=== PATIENT | female | born 1985 | race African-American/Black ===

== ENCOUNTER 2018-11-10 10:20 | Inpatient (IN) ==
[2018-11-10] MEDS ORDERED: ONDANSETRON 4 MG/2 ML VIAL IV PRN (11:02)
[2018-11-10] MEDS ORDERED: LACTATED RINGERS 250 ML IV ONE (11:02)
[2018-11-10] MEDS ORDERED: LACTATED RINGERS 500 ML IV PRN (11:02)
[2018-11-10] MEDS ORDERED: FAMOTIDINE 20 MG TABLET PO ONE (11:08)
[2018-11-10] MEDS ORDERED: diphenhydrAMINE 50 MG/1 ML VIAL IV PRN ×2 (11:08)
[2018-11-10] MEDS ORDERED: NALOXONE 0.4 MG/ML VIAL IV PRN (11:08)
[2018-11-10] MEDS ORDERED: ONDANSETRON 4 MG/2 ML VIAL IV ONE (11:08)
[2018-11-10] MEDS ORDERED: ePHEDrine 50 MG/ML AMP IV PRN (11:08)
[2018-11-10] MEDS ORDERED: CITRIC ACID/SODIUM CITRATE 30 ML UDCUP PO ONE (11:08)
[2018-11-10] MEDS ORDERED: PROMETHAZINE 25 MG/1 ML VIAL IM ONE (11:08)
[2018-11-10] MEDS ORDERED: hydrOXYzine HCL 25 MG/1 ML VIAL IM PRN (11:08)
[2018-11-10] MEDS ORDERED: fentaNYL 2 MCG/ROPIV 0.2% EPID 100 ML EPIDURAL SCH (11:30)
[2018-11-10] MEDS ORDERED: OXYTOCIN/LR 20 UNIT/1,000 ML BAG IV SCH (11:30)
[2018-11-10] MEDS: LACTATED RINGERS 1,000 ML IV SCH ×2 (11:31→15:12)
[2018-11-10] MEDS: CLINDAMYCIN INJ 900 MG in PREMIX 1 EACH IV SCH ×2 (11:31→19:06)
[2018-11-10 11:34] LABS: Basophils % 0.2 % (0.0-0.8); Eosinophils # 0.1 10*3/uL (0.0-0.87); Eosinophils % 0.8 % (0.00-10.9); Hematocrit 31.6 VOL% (35.7-47.0); Hemoglobin 10.2 GM/DL (12.0-16.0); Immature Granulocytes % 0.7 %; Immature Granulocytes Absolute 0.06 #; Lymphocytes # 1.3 10*3/uL (1.4-4.0); Lymphocytes % 15.6 % (21.3-54.2); Mean Corpuscular HGB Conc 32.3 GM/DL (32-36); Mean Corpuscular Volume 89.5 FL (87-102); Mean Platelet Volume 9.9 FL (9.6-12.0); Monocytes % 9.5 % (1.7-12.7); Neutrophils % 73.2 % (38.7-73.9); Platelet Count 322 T/CUMM (130-400); Red Blood Count 3.53 MC/CUMM (3.8-5.5); Red Cell Distribution Width 13.2 % (9.3-17.3); White Blood Count 8.3 T/CUMM (4-12)
[2018-11-10] MEDS ORDERED: BUTORPHANOL 2 MG/ML VIAL IV PRN (21:08)
[2018-11-10] MEDS ORDERED: CITRIC ACID/SODIUM CITRATE 30 ML UDCUP ONE (21:34)
[2018-11-10] MEDS ORDERED: FAMOTIDINE 20 MG/2 ML VIAL IV PRN (21:35)
[2018-11-11] MEDS ORDERED: miSOPROStol 200 MCG TABLET ONE (00:58)
[2018-11-11] MEDS ORDERED: LIDOCAINE 1% 50 ML VIAL ONE (00:58)
[2018-11-11] MEDS ORDERED: TRANEXAMIC ACID 1,000 MG/10 ML VIAL ONE (00:58)
[2018-11-11] MEDS ORDERED: CARBOPROST TROMETHAMINE 250 MCG/ML AMP IM ONE (00:59)
[2018-11-11] MEDS ORDERED: OXYTOCIN/LR 20 UNIT/1,000 ML BAG IV ONE (01:51)
[2018-11-11] MEDS ORDERED: LANOLIN 50% CREAM 0.3 OZ TUBE TOP PRN (01:51)
[2018-11-11] MEDS ORDERED: BISACODYL 10 MG SUPP RECTAL PRN (01:51)
[2018-11-11] MEDS ORDERED: WITCH HAZEL PADS 100/JAR TOP PRN (01:51)
[2018-11-11] MEDS ORDERED: MEASLES/MUMPS/RUBELLA VACCINE 0.5 ML VIAL SUBCUT ONE (01:51)
[2018-11-11] MEDS ORDERED: ACETAMINOPHEN 325 MG TABLET PO PRN (01:51)
[2018-11-11] MEDS ORDERED: RHO(D) IMMUNE GLOBULIN 300 MCG SYRINGE IM ONE (01:51)
[2018-11-11] MEDS ORDERED: oxyCODONE/ACETAMINOPHEN 5-325 MG TABLET PO PRN (01:51)
[2018-11-11] MEDS ORDERED: BENZOCAINE 20%/MENTHOL 0.5% SPRAY 56 GM CAN TOP PRN (01:51)
[2018-11-11] MEDS ORDERED: ONDANSETRON 4 MG/2 ML VIAL IV PRN (01:51)
[2018-11-11] MEDS ORDERED: HYDROCORTISONE 2.5% RECTAL CREAM 30 GM TUBE TOP PRN (01:51)
[2018-11-11] MEDS ORDERED: DIPH/TET/ACEL PERT BOOSTER VACCINE 0.5 ML VIAL IM ONE (01:51)
[2018-11-11] MEDS: IBUPROFEN 800 MG TABLET PO PRN ×2 (05:18→14:36)
[2018-11-11 06:32] LABS: Basophils % 0.3 % (0.0-0.8); Eosinophils % 0.1 % (0.00-10.9); Hematocrit 34.7 VOL% (35.7-47.0); Hemoglobin 11.2 GM/DL (12.0-16.0); Immature Granulocytes % 0.5 %; Immature Granulocytes Absolute 0.06 #; Lymphocytes % 8.8 % (21.3-54.2); Mean Corpuscular HGB Conc 32.3 GM/DL (32-36); Mean Platelet Volume 9.7 FL (9.6-12.0); Monocytes % 5.9 % (1.7-12.7); Neutrophils % 84.4 % (38.7-73.9); Platelet Count 314 T/CUMM (130-400); Red Cell Distribution Width 13.2 % (9.3-17.3); White Blood Count 11.3 T/CUMM (4-12)
[2018-11-11] MEDS: oxyCODONE/ACETAMINOPHEN 5-325 MG TABLET PO PRN ×2 (08:25→14:35)
[2018-11-11] MEDS: DOCUSATE SODIUM 100 MG CAPSULE PO SCH ×2 (08:25→21:57)
[2018-11-11] MEDS ORDERED: SUMAtriptan 6 MG/0.5 ML VIAL SUBCUT ONE (09:18)
[2018-11-11] MEDS ORDERED: BUTALBITAL/ACETAMIN/CAFFEINE 50-325-40 MG TABLET PO ONE (11:00)
[2018-11-11] MEDS: BUTALBITAL/ACETAMIN/CAFFEINE 50-325-40 MG TABLET PO SCH (21:57)
[2018-11-12] MEDS: IBUPROFEN 800 MG TABLET PO PRN ×3 (04:02→22:39)
[2018-11-12] MEDS: oxyCODONE/ACETAMINOPHEN 5-325 MG TABLET PO PRN ×2 (04:03→16:44)
[2018-11-12] MEDS: BUTALBITAL/ACETAMIN/CAFFEINE 50-325-40 MG TABLET PO SCH ×4 (10:07→22:39)
[2018-11-12] MEDS: DOCUSATE SODIUM 100 MG CAPSULE PO SCH ×2 (10:07→20:41)
[2018-11-13 07:27] VITALS: BP 125/78
[2018-11-13] MEDS: DOCUSATE SODIUM 100 MG CAPSULE PO SCH (09:24)
[2018-11-13] MEDS: BUTALBITAL/ACETAMIN/CAFFEINE 50-325-40 MG TABLET PO SCH (11:07)
[2018-11-13] MEDS: IBUPROFEN 800 MG TABLET PO PRN (13:12)
[2018-11-13] MEDS: oxyCODONE/ACETAMINOPHEN 5-325 MG TABLET PO PRN (13:13)
== END 2018-11-13 16:35 | disposition home or self-care (01) | DRG 560 ==
LOC: N.LDOUT 10:20 → N.LD 10:23 → N.OB 11-11 04:45
PROVIDERS: ADMIT Obstetrics & Gynecology; ATTEND Obstetrics & Gynecology

== ENCOUNTER 2020-09-20 06:45 | Inpatient (IN) ==
[2020-09-20] MEDS ORDERED: ONDANSETRON 4 MG/2 ML VIAL IV PRN (07:13)
[2020-09-20] MEDS: OXYTOCIN/LR 20 UNIT/1,000 ML BAG IV SCH (07:54)
[2020-09-20 08:00] LABS: Basophils % 0.3 % (0.0-0.8); Eosinophils # 0.1 10*3/uL (0.0-0.87); Eosinophils % 1.3 % (0.00-10.9); Hematocrit 29.8 VOL% (35.7-47.0); Hemoglobin 9.7 GM/DL (12.0-16.0); Immature Granulocytes % 0.8 %; Immature Granulocytes Absolute 0.08 #; Lymphocytes # 1.7 10*3/uL (1.4-4.0); Lymphocytes % 16.2 % (21.3-54.2); Mean Corpuscular HGB Conc 32.6 GM/DL (32-36); Mean Corpuscular Volume 86.1 FL (87-102); Mean Platelet Volume 9.7 FL (9.6-12.0); Monocytes % 7.4 % (1.7-12.7); Platelet Count 339 T/CUMM (130-400); Red Blood Count 3.46 MC/CUMM (3.8-5.5); Red Cell Distribution Width 13.3 % (9.3-17.3); White Blood Count 10.4 T/CUMM (4-12)
[2020-09-20 08:15] LABS: INR 0.9; PT Patient Result 10.1 SECS (10.5-12.0); Partial Thromboplastin Time 26.7 SECS (23.9-33.8)
[2020-09-20 08:31] LABS: Alanine Aminotransferase 29 U/L (13-56); Albumin 2.4 G/DL (3.4-5.0); Alkaline Phosphatase 109 U/L (45-117); Aspartate Amino Transferase 21 U/L (0-37); Bilirubin,Total < 0.39 MG/DL (0.2-1.0); Blood Urea Nitrogen 11 MG/DL (7-18); Calcium 8.3 MG/DL (8.5-10.1); Carbon Dioxide 21 MMOL/L (21-32); Estimated Glom Filtration Rate 175 ML/MIN; Glucose 91 MG/DL (74-106); Osmolality,Calculated 271.8 MOS/KG (273-304); Sodium 137 MMOL/L (136-145); Total Protein 7.3 G/DL (6.4-8.2)
[2020-09-20 11:34] LABS: Protein/Creatinine Ratio,Urine 0.2 RATIO
[2020-09-20] MEDS: LACTATED RINGERS 1,000 ML IV PRN ×2 (13:53→16:39)
[2020-09-20] MEDS ORDERED: hydrOXYzine HCL 25 MG/1 ML VIAL IM PRN (14:11)
[2020-09-20] MEDS ORDERED: diphenhydrAMINE 50 MG/1 ML VIAL IV PRN ×2 (14:11)
[2020-09-20] MEDS ORDERED: ePHEDrine 50 MG/ML VIAL IV PRN (14:11)
[2020-09-20] MEDS ORDERED: ONDANSETRON 4 MG/2 ML VIAL IV ONE (14:11)
[2020-09-20] MEDS ORDERED: NALOXONE 0.4 MG/ML VIAL IV PRN (14:11)
[2020-09-20] MEDS ORDERED: CITRIC ACID/SODIUM CITRATE 30 ML UDCUP PO ONE (14:14)
[2020-09-20] MEDS ORDERED: FAMOTIDINE 20 MG/2 ML VIAL IV ONE (14:14)
[2020-09-20] MEDS ORDERED: LACTATED RINGERS 1,000 ML IV ONE (14:14)
[2020-09-21] MEDS: LACTATED RINGERS 1,000 ML IV PRN (04:36)
[2020-09-21] MEDS: OXYTOCIN/LR 20 UNIT/1,000 ML BAG IV SCH (04:47)
[2020-09-21] MEDS: LABETALOL 200 MG TABLET PO SCH ×3 (05:10→21:11)
[2020-09-21] MEDS ORDERED: CITRIC ACID/SODIUM CITRATE 30 ML UDCUP ONE (08:05)
[2020-09-21] MEDS ORDERED: FAMOTIDINE 20 MG/2 ML VIAL IV ONE (08:06)
[2020-09-21] MEDS: fentaNYL 2 MCG/ROPIV 0.2% EPID 100 ML EPIDURAL SCH ×2 (08:42→15:38)
[2020-09-21] MEDS ORDERED: miSOPROStoL 200 MCG TABLET ONE (10:48)
[2020-09-21] MEDS ORDERED: TRANEXAMIC ACID 1,000 MG/10 ML VIAL ONE (10:48)
[2020-09-21] MEDS ORDERED: OXYTOCIN/LR 20 UNIT/1,000 ML BAG IV ONE ×2 (10:48→18:48)
[2020-09-21] MEDS ORDERED: METHYLERGONOVINE 0.2 MG/1 ML AMP ONE (10:49)
[2020-09-21] MEDS ORDERED: CARBOPROST TROMETHAMINE 250 MCG/ML AMP IM ONE (10:49)
[2020-09-21] MEDS ORDERED: SODIUM CHLORIDE 0.9% 0 ML IV ONE (10:49)
[2020-09-21 10:50] LABS: Bilirubin,Urine Negative (Negative); Blood, Urine Small mg/dL (Negative); Glucose,Urine (UA) Negative (Negative); Ketones,Urine 5 mg/dL (Negative); Nitrite,Urine Negative (Negative); Protein,Urine Negative; Squamous Epithelial Cell,Urine Occasional /HPF (0-10); Urine Appearance CLEAR (Clear); Urine Color Straw (Yellow); Urine Specific Gravity 1.004 (1.001-1.035); Urine Urobilinogen < 2.0 EU/DL (0.2-1.0)
[2020-09-21] MEDS ORDERED: DIPH/TET/ACEL PERT BOOSTER VACCINE 0.5 ML VIAL IM ONE (18:48)
[2020-09-21] MEDS ORDERED: HYDROCORTISONE 2.5% RECTAL CREAM 30 GM TUBE TOP PRN (18:48)
[2020-09-21] MEDS ORDERED: RHO(D) IMMUNE GLOBULIN 300 MCG SYRINGE IM ONE (18:48)
[2020-09-21] MEDS ORDERED: LANOLIN 50% CREAM 0.3 OZ TUBE TOP PRN (18:48)
[2020-09-21] MEDS ORDERED: IBUPROFEN 800 MG TABLET PO PRN (18:48)
[2020-09-21] MEDS ORDERED: oxyCODONE/ACETAMINOPHEN 5-325 MG TABLET PO PRN ×2 (18:48)
[2020-09-21] MEDS ORDERED: WITCH HAZEL PADS 100/JAR TOP PRN (18:48)
[2020-09-21] MEDS ORDERED: BENZOCAINE 20%/MENTHOL 0.5% SPRAY 56 GM CAN TOP PRN (18:48)
[2020-09-21] MEDS ORDERED: MEASLES/MUMPS/RUBELLA VACCINE 0.5 ML VIAL SUBCUT ONE (18:48)
[2020-09-21] MEDS ORDERED: ACETAMINOPHEN 325 MG TABLET PO PRN (18:48)
[2020-09-21] MEDS ORDERED: BISACODYL 10 MG SUPP RECTAL PRN (18:48)
[2020-09-21] MEDS ORDERED: ONDANSETRON 4 MG/2 ML VIAL IV PRN (18:48)
[2020-09-21 18:59] LABS: Cord Arterial Blood HCO3 20.5 MMOL/L
[2020-09-21 19:02] LABS: Cord Venous Blood PCO2 36.8 MMHG
[2020-09-22 06:23] LABS: Basophils % 0.2 % (0.0-0.8); Eosinophils # 0.2 10*3/uL (0.0-0.87); Eosinophils % 1.3 % (0.00-10.9); Hematocrit 27.5 VOL% (35.7-47.0); Hemoglobin 9.2 GM/DL (12.0-16.0); Immature Granulocytes % 0.6 %; Immature Granulocytes Absolute 0.09 #; Lymphocytes % 13.4 % (21.3-54.2); Mean Corpuscular HGB Conc 33.5 GM/DL (32-36); Mean Corpuscular Volume 84.6 FL (87-102); Mean Platelet Volume 9.6 FL (9.6-12.0); Monocytes % 6.3 % (1.7-12.7); Neutrophils % 78.2 % (38.7-73.9); Platelet Count 306 T/CUMM (130-400); Red Blood Count 3.25 MC/CUMM (3.8-5.5); Red Cell Distribution Width 13.2 % (9.3-17.3)
[2020-09-22] MEDS: DOCUSATE SODIUM 100 MG CAPSULE PO SCH ×3 (10:05→21:48)
[2020-09-22] MEDS: LABETALOL 200 MG TABLET PO SCH ×3 (10:06→23:52)
[2020-09-23 08:36] VITALS: BP 105/61
[2020-09-23] MEDS: DOCUSATE SODIUM 100 MG CAPSULE PO SCH (09:35)
[2020-09-23] MEDS: LABETALOL 200 MG TABLET PO SCH (09:35)
== END 2020-09-23 11:09 | disposition home or self-care (01) | DRG 560 ==
LOC: N.LD 06:45 → N.OB 09-21 22:01
PROVIDERS: ADMIT Obstetrics & Gynecology; ATTEND Obstetrics & Gynecology